=== PATIENT | male | born 1965 | race Caucasian/White ===

== ENCOUNTER 2018-02-21 06:54 | Inpatient (IN) | payer BC ==
[~2018-02-21] VITALS: Ht 170.2 cm; Wt 103.6 kg
[~2018-02-21 06:54] MED LIST: ASPI-498 OR; ATOR20TA50 PO; CARV3.1240 PO; CHOL20007 OR; CLOP75TA28 PO; HYDR-4683 PO; IPRAAER6 IN; LISI2.5T47 PO; OME20T PO
[2018-02-21] MEDS ORDERED: IODIXANOL 320MG/ML 100ML BTL IV ONE ×2 (07:25→09:13)
[2018-02-21] MEDS ORDERED: LIDOCAINE 2%HCL (LOCAL ANESTH.) INJ 20ML MDV ONE (07:25)
[2018-02-21] MEDS ORDERED: ANGIOMAX 250 MG VIAL IV ONE (08:09)
[2018-02-21] MEDS ORDERED: SODIUM CHL 0.9% 50 ML ONE (08:09)
[2018-02-21] MEDS ORDERED: MIDAZOLAM HCL 1MG/1ML-2 ML VIAL ONE ×2 (08:09→08:48)
[2018-02-21] MEDS ORDERED: fentaNYL CITRATE 100 MCG/2 ML VL ONE (08:09)
[2018-02-21] MEDS ORDERED: VERAPAMIL 2.5MG/ML INJ 2ML VIAL IV ONE (08:12)
[2018-02-21] MEDS ORDERED: ATROPINE SULF 1 MG/10ml SYR ONE (09:00)
[2018-02-21] MEDS ORDERED: CLOPIDOGREL BISULFATE 75 MG TAB ONE (09:09)
[2018-02-21] MEDS ORDERED: ASPirin 325 MG TAB ONE (09:09)
[2018-02-21] MEDS ORDERED: ONDANSETRON HCL 4 MG/2 ML VIAL IV PRN (09:45)
[2018-02-21] MEDS ORDERED: HYDROcodone-ACET 5/325MG TAB PO PRN (09:45)
[2018-02-21] MEDS ORDERED: ACETAMINOPHEN 500 MG TAB PO PRN (09:45)
[2018-02-21] MEDS ORDERED: NITROGLYCERIN 0.4 MG SL TAB SL PRN (09:45)
[2018-02-21] MEDS ORDERED: MORPHINE SULFATE 10 MG/ML INJ 1ML SDV IV PRN (09:45)
[2018-02-21] MEDS: PANTOPRAZOLE 40 MG TAB PO SCH (09:49)
[2018-02-21] MEDS: LISINOPRIL 5 MG TAB PO SCH (09:49)
[2018-02-21] MEDS: CHOLECALCIFEROL (VITD3) 1,000 UNIT TAB PO SCH (09:49)
--- NOTE | 2018-02-21 10:20 | NUR ---
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 Patient oriented to Becca Casanova, primary RN, unit, room, bed, and unit policies regarding patient care and visiting hours. Patient now on continuous telemetry monitoring, tele box #15 and telemetry reading on arrival to unit is . , weighed by bedscale and encouraged to call if they need something. All questions and concerns addressed, patient verbalized understanding. Note:
[2018-02-21] MEDS: ALBUTEROL IN SCH ×3 (12:00→22:00)
[2018-02-21] MEDS: IPRATROPIUM IN SCH ×3 (12:00→22:00)
[2018-02-21 13:34] VITALS: BP 116/83
[2018-02-21] MEDS: SODIUM CHLOR 0.9% PF (SALINE LOCK) 10ML VIAL/SYR IV SCH ×2 (14:16→21:33)
--- NOTE | 2018-02-21 19:30 | NUR ---
Opening Shift Note Assumed care of patient, awake and alert. No S/S of distress/SOB or pain. Instructed on POC and to call for assist PRN, will continue to monitor for changes Q1hr and PRN.
[2018-02-21 21:49] VITALS: BP 118/83
[2018-02-21] MEDS ORDERED: ATORVASTATIN 20 MG TAB PO SCH (22:00)
[2018-02-22 05:06] VITALS: BP 114/84
[2018-02-22] MEDS: IPRATROPIUM IN SCH (06:00)
[2018-02-22] MEDS: ALBUTEROL IN SCH (06:00)
[2018-02-22] MEDS: SODIUM CHLOR 0.9% PF (SALINE LOCK) 10ML VIAL/SYR IV SCH (06:10)
[2018-02-22 09:00] VITALS: BP 141/95
[2018-02-22] MEDS: PANTOPRAZOLE 40 MG TAB PO SCH (09:10)
[2018-02-22] MEDS: LISINOPRIL 5 MG TAB PO SCH (09:12)
[2018-02-22] MEDS: CHOLECALCIFEROL (VITD3) 1,000 UNIT TAB PO SCH (09:13)
[2018-02-22] MEDS ORDERED: CARVEDILOL 3.125 MG TAB PO SCH (10:00)
[2018-02-22] MEDS ORDERED: CLOPIDOGREL BISULFATE 75 MG TAB PO SCH (10:00)
[2018-02-22] MEDS ORDERED: ASPirin-EC 81 mg tab PO SCH (10:00)
[2018-02-22 10:30] VITALS: BP 116/72
== END 2018-02-22 10:45 | disposition home or self-care (01) | DRG 247 ==
LOC: CATH 06:54 → TELE-CENTR 10:45
PROVIDERS: ADMIT Internal Medicine; ATTEND Internal Medicine
PROC: 027034Z Dilation of Coronary Artery, One Artery with Drug-eluting Intraluminal Device, Percutaneous Approach (ICD-10-PCS; principal; 2018-02-21)
PROC: 4A023N7 Measurement of Cardiac Sampling and Pressure, Left Heart, Percutaneous Approach (ICD-10-PCS; 2018-02-21)
PROC: B2111ZZ Fluoroscopy of Multiple Coronary Arteries using Low Osmolar Contrast (ICD-10-PCS; 2018-02-21)
PROC: B41F1ZZ Fluoroscopy of Right Lower Extremity Arteries using Low Osmolar Contrast (ICD-10-PCS; 2018-02-21)
DX: I25.10 Atherosclerotic heart disease of native coronary artery without angina pectoris (principal); I10 Essential (primary) hypertension; E78.5 Hyperlipidemia, unspecified; I25.2 Old myocardial infarction; Z72.0 Tobacco use; Z71.6 Tobacco abuse counseling; Z79.82 Long term (current) use of aspirin
CPT/HCPCS: 75710; 87081; 92928; 99152; A6257; C1874; C1887; G0378; J2250; Q9967

== ENCOUNTER 2024-05-12 09:14 | Day surgery (SDC) | payer BC, OTHER ==
[~2024-05-12] VITALS: Ht 170.2 cm; Wt 111.1 kg
[~2024-05-12 09:14] MED LIST changes: +ALBU108A5 IN; -ATOR20TA50 PO; +ATOR40TA52 PO; -HYDR-4683 PO; -LISI2.5T47 PO; +NITR0.4S29 SL; +SACU1TAB PO; +TRIA37.586 PO
--- NOTE | 2024-05-12 10:02 | ECG ---
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
[2024-05-12] MEDS ORDERED: IODIXANOL 320MG/ML 100ML BTL IV ONE (10:14)
[2024-05-12] MEDS ORDERED: HEPARIN IN NS 1000Units/500mL 1,500 ML ONE (10:15)
[2024-05-12] MEDS ORDERED: MIDAZOLAM HCL 2MG/2ML 2ml VIAL (1mg/ml) ONE (10:27)
[2024-05-12] MEDS ORDERED: VERAPAMIL 2.5MG/ML INJ 2ML VIAL IV ONE (10:27)
[2024-05-12] MEDS ORDERED: LIDOCAINE 2%HCL (LOCAL ANESTH.) INJ 20ML MDV ONE (10:27)
[2024-05-12] MEDS ORDERED: ANGIOMAX 250 MG VIAL IV ONE (10:27)
[2024-05-12] MEDS ORDERED: fentaNYL CITRATE 100 MCG/2 ML VL ONE (10:27)
[2024-05-12] MEDS ORDERED: SODIUM CHL 0.9% 0 ML ONE (10:27)
--- NOTE | 2024-05-12 11:09 | DVHOP2 ---
Operative Report Operative Report CARDIAC MEDICAL DETAIL REPRESENTATIVE PROCEDURE REPORT [place], [place] Date of Service: Credit Office Manager: Andrea Mcadams MD PROCEDURES PERFORMED: Coronary angiogram, left heart catheterization, conscious sedation administration and supervision, less than 15 minutes; fluoroscopy use and interpretation. PREOPERATIVE DIAGNOSES: Abnormal stress test with CCS class 3 angina, POSTOP DIAGNOSIS: DESCRIPTION OF PROCEDURE: The patient or appropriate family signed informed consent understanding the risks, benefits and alternatives of the procedure, they wished to proceed. The patient was brought to the cardiac catheterization laboratory technician in n.p.o. state. The patient was prepped in a sterile fashion. Sedation was used per cardiac cath protocol. I administered 2 mL of 2% lidocaine to the right wrist. With an antegrade front wall puncture. I cannulated the right radial artery and placed a 6-[place] Glidesheath slender. Next, an intra-arterial spasmolytic was administered. Next, a - 6[place] catheter aguide and were used for coronary angiogram and LVEDP measurement and pressure pullback. At the completion of procedure, all guides and wires were removed, and there were no immediate complications. 4000 U of iv heparin given. 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 mid RCA 40-50% stenosis, RPDA has a discrete 60% mid vessel stenosis. RPL has a patent stent. LEFT MAIN: Moderate size left main, it bifurcates into LAD and circumflex. no stenosis. CIRCUMFLEX: Moderate caliber vessel coming off the left main with no flow limiting stenosis. LAD: LAD is a moderate caliber vessel coming of the left main. prox LAD has patent stent. moderat Diag doming off LAD stented area that is jailed and has a distal 60% stenosis. apical LAD is free of severe disease. 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 patent LAD stent from prior stemi 2. patent RPL stent 3. 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 needs COPD treatment needs smoking cessation ANDREA MCADAMS MD May 12, 2024 11:09
[2024-05-12] MEDS ORDERED: HEPARIN SODIUM (PORCINE) 5000 UNITS/ML 1ML VIAL ONE (11:12)
[2024-05-12] MEDS: HEPARIN SODIUM (PORCINE) 5000 UNITS/ML 1ML VIAL IV ONE (11:19)
== END 2024-05-12 13:10 | disposition home or self-care (01) ==
LOC: CATH 09:14
PROVIDERS: ATTEND Internal Medicine
DX: R94.39 Abnormal result of other cardiovascular function study (principal); I25.110 Atherosclerotic heart disease of native coronary artery with unstable angina pectoris; I25.2 Old myocardial infarction; I11.0 Hypertensive heart disease with heart failure; I50.20 Unspecified systolic (congestive) heart failure; I73.9 Peripheral vascular disease, unspecified; E78.5 Hyperlipidemia, unspecified; E78.00 Pure hypercholesterolemia, unspecified; E66.01 Morbid (severe) obesity due to excess calories; Z68.38 Body mass index [BMI] 38.0-38.9, adult; Z79.82 Long term (current) use of aspirin; Z79.899 Other long term (current) drug therapy; Z72.0 Tobacco use; Z95.5 Presence of coronary angioplasty implant and graft; Z86.16 Personal history of COVID-19; Z88.0 Allergy status to penicillin; Z83.3 Family history of diabetes mellitus
CPT/HCPCS: 93005; 93458; C1894; J1644; J2250; J3010; J7030; Q9967; 99152